=== PATIENT | male | born 1955 ===

== ENCOUNTER 2019-08-16 07:15 | Emergency (ER) | payer OTHER ==
--- NOTE | 2019-08-16 08:05 | EDM.PDOC ---
ED HPI GENERAL MEDICAL PROBLEM - General Chief Complaint: Respiratory Problem Stated Complaint: SOB Time Seen by Provider: 08/16/19 07:51 Source of Information: Reports: Patient History Limitations: Reports: No Limitations - History of Present Illness INITIAL COMMENTS - FREE TEXT/NARRATIVE: Patient comes to ER with complaint of three day history feeling SOB. Only other complaint is that he feels nausea if he lays down. Overall feels better sitting up. Denies having similar problems in the past. No recent cold/flu/infection symptoms No new pain complaint. He did complain of lack of appetite during review of symptoms. No one else at the [facility] is sick. They colony has been closed to outsiders for much of the past month. History of HTN/on 2 BP meds but cannot remember what they are. - Related Data Allergies Allergy/AdvReac Type Severity Reaction Status Date / Time No Known Allergies Allergy Verified 08/16/19 07:19 Home Meds: Home Meds cloNIDine [Catapres] 0.1 mg PO Q8H 08/16/19 [History] Past Medical History Cardiovascular History: Reports: Hypertension Social & Family History - Tobacco Use Smoking Status *Q: Former Smoker Years of Tobacco use: 4 Used Tobacco, but Quit: Yes Month/Year Tobacco Last Used: 1989 - Caffeine Use Caffeine Use: Reports: Tea - Recreational Drug Use Recreational Drug Use: No ED ROS GENERAL - Review of Systems Review Of Systems: See Below Constitutional: Reports: Decreased Appetite HEENT: Reports: No Symptoms Respiratory: Reports: Shortness of Breath. Denies: Wheezing, Pleuritic Chest Pain, Cough, Sputum, Hemoptysis Cardiovascular: Reports: Dyspnea on Exertion, Orthopnea. Denies: Chest Pain, Claudication, Edema, Lightheadedness, Palpitations, Syncope GI/Abdominal: Reports: Decreased Appetite, Nausea. Denies: Abdominal Pain, Black Stool, Bloody Stool, Constipation, Diarrhea, Difficulty Swallowing, Distension, Vomiting : Reports: No Symptoms Musculoskeletal: Reports: Other (no acute change from baseline) Skin: Reports: No Symptoms Neurological: Denies: Confusion, Dizziness, Headache, Numbness, Paresthesia, Change in Speech, Gait Disturbance Psychiatric: Reports: No Symptoms ED EXAM, GENERAL - Physical Exam Exam: See Below Exam Limited By: No Limitations General Appearance: Alert, WD/WN, No Apparent Distress Eye Exam: Bilateral Eye: EOMI, PERRL Ears: Hearing Grossly Normal EKG INTERPRETATION EKG Date: 08/16/19 Time: 07:48 Rhythm: Other (Sinus bradycardia) Rate (Beats/Min): 54 [place]: Normal P-Wave: Present QRS: Normal ST-T: Other (noisy, hard to find defined S-T segment or T wave in most leads) QT: Normal Comparison: NA - No Prior EKG Course - Vital Signs Last Recorded V/S: Last Vital Signs Temp 36.3 C 08/16/19 07:16 Pulse 67 08/16/19 07:16 Resp 20 08/16/19 07:16 BP 169/70 H 08/16/19 07:16 Pulse Ox 96 08/16/19 07:16 - Orders/Labs/Meds Orders: Active Orders 24 hr Category Date Time Status EKG Documentation Completion [RC] ASDIRECTED Care 08/16/19 07:31 Active CXR [Chest 2V] [CR] Stat Exams 08/16/19 07:20 Ordered Sodium Chloride 0.9% [Saline Flush] Med 08/16/19 08:12 Ordered 10 ml FLUSH ASDIRECTED PRN Saline Lock Insert [OM.PC] Routine Oth 08/16/19 08:12 Ordered Medication Orders Sodium Chloride (Saline Flush) 10 ml FLUSH ASDIRECTED PRN PRN Reason: Keep Vein Open Labs: Laboratory Tests 08/16/19 08/16/19 08/16/19 Range/Units 07:34 07:34 07:34 WBC 6.0 (4.0-10.2) K/uL RBC 3.44 L (4.33-5.41) M/uL Hgb 10.4 L (13.1-16.8) g/dL Hct 31.0 L (39.0-49.0) % MCV 90.1 (84.0-98.0) fL MCH 30.2 (28.2-33.3) pg MCHC 33.5 (31.7-36.0) g/dL RDW 12.3 (11.2-14.1) % Plt Count 134 L (150-350) K/uL Neut % (Auto) 75.8 (45.0-80.0) % Lymph % (Auto) 13.8 (10.0-50.0) % [place] % (Auto) 8.4 (2.0-14.0) % Eos % (Auto) 2.0 (0.0-5.0) % Baso % (Auto) 0.0 (0.0-2.0) % Neut # (Auto) 4.52 (1.40-7.00) K/uL Lymph # (Auto) 0.82 (0.50-3.50) K/uL [place] # (Auto) 0.50 (0.00-1.00) K/uL Eos # (Auto) 0.12 (0.00-0.50) K/uL Baso # (Auto) 0.00 (0.00-0.20) K/uL D-Dimer, Quantitative 1410 H (0-400) ng/mL Sodium 144 (136-145) mmol/L Potassium 3.3 L (3.5-5.1) mmol/L Chloride 106 (98-107) mmol/L Carbon Dioxide 24.6 (21.0-32.0) mmol/L BUN 71 H (7-18) mg/dL Creatinine 5.51 H* (0.51-1.17) mg/dL Est Cr Clr Drug Dosing 15.91 mL/min Estimated GFR (MDRD) 11 mL/min Glucose 151 H (74-106) mg/dL Calcium 8.6 (8.5-10.1) mg/dL Total Bilirubin 0.9 (0.2-1.0) mg/dL AST 12 L (15-37) U/L ALT 22 (12-78) U/L Alkaline Phosphatase 78 (46-116) IU/L Troponin I 0.017 (0.000-0.056) ng/mL NT-Pro-B Natriuret Pep (0-125) pg/mL Total Protein 6.6 (6.4-8.2) g/dL Albumin 3.2 L (3.4-5.0) g/dL 08/16/19 Range/Units 07:34 WBC (4.0-10.2) K/uL RBC (4.33-5.41) M/uL Hgb (13.1-16.8) g/dL Hct (39.0-49.0) % MCV (84.0-98.0) fL MCH (28.2-33.3) pg MCHC (31.7-36.0) g/dL RDW (11.2-14.1) % Plt Count (150-350) K/uL Neut % (Auto) (45.0-80.0) % Lymph % (Auto) (10.0-50.0) % [place] % (Auto) (2.0-14.0) % Eos % (Auto) (0.0-5.0) % Baso % (Auto) (0.0-2.0) % Neut # (Auto) (1.40-7.00) K/uL Lymph # (Auto) (0.50-3.50) K/uL [place] # (Auto) (0.00-1.00) K/uL Eos # (Auto) (0.00-0.50) K/uL Baso # (Auto) (0.00-0.20) K/uL D-Dimer, Quantitative (0-400) ng/mL Sodium (136-145) mmol/L Potassium (3.5-5.1) mmol/L Chloride (98-107) mmol/L Carbon Dioxide (21.0-32.0) mmol/L BUN (7-18) mg/dL Creatinine (0.51-1.17) mg/dL Est Cr Clr Drug Dosing mL/min Estimated GFR (MDRD) mL/min Glucose (74-106) mg/dL Calcium (8.5-10.1) mg/dL Total Bilirubin (0.2-1.0) mg/dL AST (15-37) U/L ALT (12-78) U/L Alkaline Phosphatase (46-116) IU/L Troponin I (0.000-0.056) ng/mL NT-Pro-B Natriuret Pep 7100 H (0-125) pg/mL Total Protein (6.4-8.2) g/dL Albumin (3.4-5.0) g/dL Meds: Medications Generic Name Dose Route Start Last Admin Trade Name Freq PRN Reason Stop Dose Admin Sodium Chloride 10 ml 08/16/19 08:12 Saline Flush FLUSH ASDIRECTED PRN Keep Vein Open - Radiology Interpretation Free Text/Narrative:: Chest xray shows no focal infiltrate/pneumothorax. Consider mild fluid overload. - Re-Assessments/Exams Free Text/Narrative Re-Assessment/Exam: 08/16/19 08:37 Labs/EKG/xray ordered. Patient's vital signs stable. Good O2 sats on room air. Found to be in acute renal failure with significantly elevated BUN/Cr. Also elevated was ProBNP and DDimer. Anemia. Mild hypokalemia. Call placed to [facility] to arrange transfer of patient. Patient accepted by . Currently waiting for call back from [facility] to verify bed assignment. No acute intervention recommended at this time as patient is stable and he is also refusing EMS transfer. Patient's son will be taking him to [facility] when bed is finalized. Departure - Departure Time of Disposition: 09:01 Disposition: DC/Tfer to [facility] 02 Clinical Impression: Hypokalemia, Elevated d-dimer Acute renal failure Qualifiers: Acute renal failure type: unspecified Qualified Code(s): N17.9 - Acute kidney failure, unspecified CHF (congestive heart failure) Qualifiers: Heart failure type: unspecified Heart failure chronicity: unspecified Qualified Code(s): I50.9 - Heart failure, unspecified - Discharge Information *PRESCRIPTION DRUG MONITORING PROGRAM REVIEWED*: Not Applicable *COPY OF PRESCRIPTION DRUG MONITORING REPORT IN PATIENT MARY: Not Applicable Referrals: PCP,None [Primary Care Provider] - Forms: ED Department Discharge Additional Instructions: Drive directly to [facility] from ER. They are expecting you. Sepsis Event Note - Evaluation Sepsis Screening Result: No Definite Risk - Focused Exam Vital Signs: Vital Signs Temp Pulse Resp BP Pulse Ox 08/16/19 07:16 36.3 C 67 20 169/70 H 96 Date Exam was Performed: 08/16/19 Time Exam was Performed: 09:01 - My Orders Last 24 Hours: My Active Orders 08/16/19 07:20 CXR [Chest 2V] [CR] Stat 08/16/19 07:31 EKG Documentation Completion [RC] ASDIRECTED 08/16/19 08:12 Sodium Chloride 0.9% [Saline Flush] 10 ml FLUSH ASDIRECTED PRN Saline Lock Insert [OM.PC] Routine - Assessment/Plan Last 24 Hours: My Active Orders 08/16/19 07:20 CXR [Chest 2V] [CR] Stat 08/16/19 07:31 EKG Documentation Completion [RC] ASDIRECTED 08/16/19 08:12 Sodium Chloride 0.9% [Saline Flush] 10 ml FLUSH ASDIRECTED PRN Saline Lock Insert [OM.PC] Routine
[2019-08-16] MEDS ORDERED: Sodium Chloride 0.9% 10 ML Syringe FLUSH PRN (08:12)
== END 2019-08-16 09:10 ==
LOC: LL.ED 07:15
DX: I11.0 Hypertensive heart disease with heart failure (principal); I50.9 Heart failure, unspecified; E87.6 Hypokalemia; N17.9 Acute kidney failure, unspecified; R79.1 Abnormal coagulation profile; R00.1 Bradycardia, unspecified; Z87.891 Personal history of nicotine dependence
CPT/HCPCS: 36415; 71046; 80053; 83880; 84484; 85025; 85379; 93005; 99285-25

== ENCOUNTER 2020-05-07 20:33 | Emergency (ER) | payer OTHER ==
--- NOTE | 2020-05-07 21:14 | EDM.PDOC ---
ED HPI GENERAL MEDICAL PROBLEM - General Chief Complaint: CPR in Progress Stated Complaint: code blue Time Seen by Provider: 05/07/20 20:51 Source of Information: Reports: EMS, Family - History of Present Illness INITIAL COMMENTS - FREE TEXT/NARRATIVE: Patient brought in by EMS due to witnessed arrest at home. CPR in progress. Family reports that patient had first run of dialysis earlier today. Developed a headache this evening at home. Family put cool rags on his head. Shortly thereafter he said he felt better but then developed acute respiratory difficulty that got progressively worse for 5-10 min and then he went into respiratory arrest. Family performed CPR on scene. Patient was subsequently treated by [facility] who intercepted with our local EMS team. Patient continued to receive CPR. EMS reports patient received 6 rounds of Epi, along 300mg Amiodarone, Magnesium, and Sodium Bicarb throughout patient's time in their care. Approximately 45 min-1hour had progressed since patient initially went down by time he arrived in ER. They reported a variety of cardiac rhythms including Torsades, VTach/VFib and PEA. The majority of time patient was in PEA. Two very brief/minimal per iods of ROSC noted but patient quickly degenerated back to PEA. Right at time of entry to ER monitor showed shockable rhythm and patient received one unsynchronized shock from EMS equipment while still on EMS gurney. Noted to be in pulseless VTach after shock. Pupils fixed. Family followed EMS crew to ER. They requested that no additional CPR be given if patient received up to two shocks and there was no response. By this time patient had actually received 6 defibrillation attempts. It was verified that they wished to have resuscitation efforts terminated. After confirmation of this, the Gm was turned off and no further intervention was attempted. Time of 183 - Related Data Allergies Allergy/AdvReac Type Severity Reaction Status Date / Time No Known Allergies Allergy Verified 08/16/19 07:19 Home Meds: Home Meds cloNIDine [Catapres] 0.1 mg PO Q8H 08/16/19 [History] Past Medical History Cardiovascular History: Reports: Hypertension Social & Family History - Caffeine Use Caffeine Use: Reports: Tea ED ROS GENERAL - Review of Systems Review Of Systems: Unable To Obtain Reason Not Obtained: patient ED EXAM, GENERAL - Physical Exam Exam: Not Obtained Reason Not Obtained: patient Course - Re-Assessments/Exams Free Text/Narrative Re-Assessment/Exam: 05/07/20 21:14 No further attempts at resuscitation performed once patient arrived to the ER and last shock given by EMS personnel as noted in HPI. It was noted by EMS crew that initially both of patient's pupils were blown/equal when they initiated transport. But time of arrival to ER, right pupil still blown but left was much smaller. Given sudden headache complaint at home with rapid development of respiratory difficulty and subsequent arrest, suspect patient likely had CVA which led to cardiopulmonary arrest. Family does not wish to have autopsy Departure - Departure Time of Disposition: 21:02 Disposition: 20 Clinical Impression: Cardiac arrest - Discharge Information *PRESCRIPTION DRUG MONITORING PROGRAM REVIEWED*: Not Applicable *COPY OF PRESCRIPTION DRUG MONITORING REPORT IN PATIENT MARY: Not Applicable
== END 2020-05-07 22:45 | disposition expired ==
LOC: LL.ED 20:33
DX: I46.9 Cardiac arrest, cause unspecified (principal); I10 Essential (primary) hypertension; Z79.899 Other long term (current) drug therapy
CPT/HCPCS: 92950; 99285-25